=== PATIENT | female | born 1985 | race Two or more races ===

== ENCOUNTER 2022-09-04 19:06 | Emergency (ER) | payer SELFPAY ==
[~2022-09-04] VITALS: Ht 162.6 cm; Wt 80.0 kg
[2022-09-04 21:25] VITALS: BP 130/72
== END 2022-09-04 21:25 | disposition home or self-care (01) ==
LOC: EEVIPCON 19:06 → ER 19:11
DX: O26.892 Other specified pregnancy related conditions, second trimester (principal); Z3A.17 17 weeks gestation of pregnancy; S39.81XA Other specified injuries of abdomen, initial encounter; V43.52XA Car driver injured in collision with other type car in traffic accident, initial encounter; Y93.89 Activity, other specified; Y92.410 Unspecified street and highway as the place of occurrence of the external cause
CPT/HCPCS: 76805; 99281